=== PATIENT | male | born 1955 | race Caucasian/White ===

== ENCOUNTER 2020-11-01 05:44 | Day surgery (SDC) | payer MEDICARE, OTHER ==
[~2020-11-01] VITALS: Ht 166.4 cm; Wt 105.0 kg
[2020-11-01] MEDS ORDERED: SODIUM CHLORIDE 0.9% 1,000 ML IV ONE (06:30)
[2020-11-01 06:50] LABS: COVID AG,FIA SOURCE NASOPHARYNGEAL
[2020-11-01] MEDS ORDERED: SODIUM CHLORIDE 0.9% 1,000 ML ONE (07:52)
[2020-11-01] MEDS ORDERED: FentaNYL CITRATE PF 100 MCG/2 ML VIAL ONE (08:05)
[2020-11-01] MEDS ORDERED: MIDAZOLAM HCL 5 MG/ML VIAL ONE (08:06)
[2020-11-01] MEDS ORDERED: MethylPREDNISolone SOD SUCC 125 MG/2 ML VIAL IVP ONE (09:15)
[2020-11-01] MEDS ORDERED: MethylPREDNISolone SOD SUCC 125 MG/2 ML VIAL ONE (09:57)
[2020-11-01] MEDS ORDERED: BENZOCAINE 20% 30 ML SOLUTION ONE (17:17)
[2020-11-01] MEDS ORDERED: LIDOCAINE 4% 50 ML SOLUTION ONE (17:17)
[2020-11-01] MEDS ORDERED: ALBUTEROL SULFATE 2.5 MG/0.5 ML NEB SOLUTION NEB ONE (17:17)
[2020-11-01] MEDS ORDERED: LIDOCAINE 2% 30 ML JELLY ONE (17:17)
[2020-11-01] MEDS ORDERED: OXYGEN THERAPY IH SCH (20:00)
== END 2020-11-01 10:51 | disposition home or self-care (01) ==
LOC: SURGERY 05:44
PROVIDERS: ATTEND Internal Medicine Critical Care Medicine
DX: J38.4 Edema of larynx (principal); B37.0 Candidal stomatitis; Z98.890 Other specified postprocedural states
CPT/HCPCS: 31623; 31624; 71045; 87015; 87070; 87101; 87205; 87206; 87220; 87426; 88108; 88184; 88185; 88312; C9803; J2250; J2930; J3010; J7030; J7613; Z7610